=== PATIENT | female | born 1950 | race Caucasian/White ===

== ENCOUNTER → 2018-09-29 | Outpatient (CLI) | payer MEDICARE ==
--- NOTE | 2018-09-29 12:36 | ECHOS ---
STRESS ECHOCARDIOGRAM DOBUTAMINE STRESS ECHO: DATE OF SERVICE: 09/29/2018 INDICATIONS: Chest pain. MEDICATIONS: BASELINE HEART RATE: 79 BASELINE BLOOD PRESSURE: 145/86 MAXIMUM HEART RATE: 135 MAXIMUM BLOOD PRESSURE: 175/58 85% MPHR: 130 100% MPHR: 153 METS: MAXIMUM STAGE REACHED: TOTAL EXERCISE TIME: CLINICAL INFORMATION: Baseline EKG shows sinus rhythm, normal axis, normal intervals. Patient was given intravenous dobutamine over a period of 7-1/2 minutes as per protocol. Did not have chest pain or diagnostic ST-segment depression. The patient complained of jaw pain. Baseline echo shows normal left ventricular size, wall motion and systolic function. Post dobutamine infusion, there is normal hyperdynamic response of all segments of myocardium noted. CONCLUSIONS: 1. Negative stress test by EKG criteria. 2. Negative dobutamine echo. MMODL / IJN: [id number] /
== END | disposition home or self-care (01) ==
LOC: RADNMMAIN 09:41
PROVIDERS: ATTEND Family Medicine
DX: R00.2 Palpitations (principal); Z88.2 Allergy status to sulfonamides; Z88.5 Allergy status to narcotic agent
CPT/HCPCS: 93351

== ENCOUNTER → 2018-09-29 | Outpatient (CLI) | payer MEDICARE ==
[~2018-09-29] MED LIST: DOBUTamine DRIP for NUC MED 500 MG in DEXTROSE/WATER 1 250ML.BAG IV ONE
--- NOTE | 2018-09-30 10:09 | MM ---
Reason for exam: screening (asymptomatic). Last mammogram was performed 2 years and 10 months ago. History: Patient is postmenopausal. Benign US biopsy breast VAD LT of the left breast, November 17, 2015. Physical Findings: A clinical breast exam by your physician is recommended on an annual basis and results should be correlated with mammographic findings. MG 3D Screening Mammo W/Cad Bilateral CC and MLO view(s) were taken. Prior study comparison: November 17, 2015, left breast MG diagnostic mammo LT wo CAD. October 31, 2015, bilateral MG 3d screening mammo w/cad. The breast tissue is heterogeneously dense. This may lower the sensitivity of mammography. Previous mammotome biopsy in the left breast. There is chronic nodularity bilaterally. There is no dominant lesion. No significant changes when compared with prior studies. ASSESSMENT: Benign, BI-RAD 2 RECOMMENDATION: Routine screening mammogram of both breasts in 1 year.
== END | disposition home or self-care (01) ==
LOC: RADMAMWWP 09:07
PROVIDERS: ATTEND Family Medicine
DX: Z12.31 Encounter for screening mammogram for malignant neoplasm of breast (principal)
CPT/HCPCS: 77067; 77063; J1250

== ENCOUNTER → 2019-10-18 | Outpatient (CLI) | payer MEDICARE ==
--- NOTE | 2019-10-18 11:29 | MM ---
Reason for exam: screening (asymptomatic). Last mammogram was performed 1 year and 1 month ago. History: Patient is postmenopausal. Benign US biopsy breast VAD LT of the left breast, November 17, 2015. Physical Findings: A clinical breast exam by your physician is recommended on an annual basis and results should be correlated with mammographic findings. MG 3D Screening Mammo W/Cad Bilateral CC and MLO view(s) were taken. Prior study comparison: September 29, 2018, bilateral MG 3d screening mammo w/cad. November 17, 2015, left breast MG diagnostic mammo LT wo CAD. The breast tissue is heterogeneously dense. This may lower the sensitivity of mammography. There are numerous bilateral round oval circumscribed masses throughout. No significant interval growth compared to priors. Left biopsy marker ruth the largest mass. No suspicious abnormality. No significant changes when compared with prior studies. ASSESSMENT: Benign, BI-RAD 2 RECOMMENDATION: Routine screening mammogram of both breasts in 1 year.
== END | disposition home or self-care (01) ==
LOC: RADMAMWWP 09:39
PROVIDERS: ATTEND Obstetrics & Gynecology
DX: Z12.31 Encounter for screening mammogram for malignant neoplasm of breast (principal)
CPT/HCPCS: 77063; 77067

== ENCOUNTER 2020-04-18 10:20 | Emergency (ER) | payer MEDICARE ==
[2020-04-18 10:26] VITALS: TEMP 98.3
[2020-04-18] MEDS ORDERED: diphenhydrAMINE 50 MG/ML 1 ML VIAL IVP STA (10:38)
[2020-04-18] MEDS ORDERED: FAMOTIDINE 20 MG/2 ML VIAL IV STA (10:38)
[2020-04-18] MEDS ORDERED: methylPREDNISolone SOD SUCCI 125 MG/2 ML VIAL IV STA (10:38)
[2020-04-18] MEDS ORDERED: SODIUM CHLORIDE 0.9% 500 ML 500 ML IV STA (10:38)
--- NOTE | 2020-04-18 11:06 | ED ---
General Adult HPI - General Chief complaint: Allergic Reaction Stated complaint: Bee Sting Allergic reaction Time Seen by Provider: 04/18/20 10:33 Source: patient, RN notes reviewed, old records reviewed Mode of arrival: wheelchair Limitations: no limitations - History of Present Illness Initial comments: 69-year-old female patient presents to ED for evaluation of wasp sting to right ring finger. Patient reports this happened about 1 hour prior to evaluation hospital. Patient denying any rash or swelling of the face. Does have some localized swelling to the hand where she was stung. Does report a little bit of chest tightness. Denies any other acute complaints. Systemic: Pt denies fatigue, fever/chills, rash. Pt denies weakness, night sweats, weight loss. Neuro: Pt denies headache, visual disturbances, syncope or pre-syncope. HEENT: Pt denies ocular discharge or irritation, otalgia, rhinorrhea, pharyngitis or notable lymphadenopathy. Cardiopulmonary: Pt denies chest pain, heart palpitations, dyspnea on exertion. Abdominal/GI: Pt denies abdominal pain, n/v/d. : Pt denies dysuria, burning w/ urination, frequency/urgency. Denies new onset urinary or bowel incontinence. MSK: Pt denies myalgia, loss of strength or function in extremities. Neuro: Pt denies new onset weakness, paresthesias. - Related Data Home Medications Medication Instructions Recorded Confirmed Albuterol Inhaler (Mhu) [Ventolin 1 - 2 puff INHALATION Q4-6H PRN 09/21/19 09/21/19 Hfa Inhaler] Previous Rx's Medication Instructions Recorded Estrogens, Conjugated Cream 1 applicator VAGINAL DIRECTED 09/21/19 [Premarin Cream] #1 tube predniSONE 50 mg PO DAILY #5 tab 04/18/20 Allergies Allergy/AdvReac Type Severity Reaction Status Date / Time codeine Allergy Unknown Dyspnea, Verified 09/21/19 10:01 Couldnt see or hear. perfume Allergy Unknown ASTHMA Verified 09/21/19 10:01 SYMPTOMS Sulfa (Sulfonamide Allergy Swelling Unverified 09/21/19 10:01 Antibiotics) Review of Systems ROS Statement: Those systems with pertinent positive or pertinent negative responses have been documented in the HPI. ROS Other: All systems not noted in ROS Statement are negative. 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 Previous benign ovarian mass removed surgically. History of Any Multi-Drug Resistant Organisms: None Reported Past Surgical History: Breast Surgery, Section, Hysterectomy, Tonsillectomy Additional Past Surgical History / Comment(s): X2, FOOT SURGERY. Breast biopsy. SIERRA in 1994. Colonoscopy 2019(next after 5yr). Past Anesthesia/Blood Transfusion Reactions: Motion Sickness, Postoperative Nausea & Vomiting (PONV) Past Psychological History: No Psychological Hx Reported Past Alcohol Use History: Occasional Past Drug Use History: None Reported - Past Family History Father Family Medical History: Cancer Additional Family Medical History / Comment(s): Prostate cancer. Sister(s) Family Medical History: Cancer Additional Family Medical History / Comment(s): CERVICAL CA Mother Family Medical History: CVA/TIA General Exam - General Exam Comments Initial Comments: Constitutional: NAD, AOX3, Pt has pleasant affect. HEENT: NC/AT, trachea midline, neck supple, no lymphadenopathy. Posterior pharynx non erythematous, without exudates. External ears appear normal, without discharge. Mucous membranes moist. Eyes PERRLA, EOM intact. There is no scleral icterus. No pallor noted. Cardiopulmonary: RRR, no murmurs, rubs or gallops, no JVD noted. Lungs CTAB in anterior and posterior lopez. No peripheral edema. Abdominal exam: Abdomen soft and non-distended. Abdomen non-tender to palpation in all 4 quadrants. Bowel sounds active in LLQ. No hepatosplenomegaly. No ecchymosis Neuro: CN II-XII grossly intact. No nuchal rigidity. MSK: Mild swelling to right hand, sting noted to ring finger. No stinger is present. no rash or hives noted. No posterior calf tenderness bilaterally, homans sign negative bilaterally. Posterior tibialis and radial pulse +2 bilaterally. Sensation intact in upper and lower extremities. Full active ROM in upper and lower extremities, 5/5 stregnth. Limitations: no limitations Course Vital Signs 04/18/20 04/18/20 04/18/20 10:24 10:59 11:30 Temperature 98.3 F Pulse Rate 81 63 Respiratory 18 20 18 Rate Blood Pressure 156/68 167/83 O2 Sat by Pulse 97 100 Oximetry Medical Decision Making - Medical Decision Making 69-year-old female patient presents to ED for evaluation of bee sting. Patient will signs are stable, afebrile. Patient initially had a little bit of chest tightness. Physical exam does reveal some erythema and edema to the right hand and a standing noted to the third digit. There is no stinger present for removal. This was reported from a wasp. Patient was administered Pepcid Benadryl and solumedrol. EKG non ischemic. Feeling much improved. No longer feeling any any chest tightness. Erythema improved. Patient never had any angioedema or any hives. Patient discharged with burst steroid treatment and return precautions. Case discussed with Dr. Davis. Disposition Clinical Impression: Wasp sting Disposition: HOME SELF-CARE Condition: Serious Instructions (If sedation given, give patient instructions): General Allergic Reaction (ED) Additional Instructions: Follow up with PCP tomorrow. Take steroids as directed. Return to ED if condition worsens. Prescriptions: predniSONE 50 mg PO DAILY #5 tab Is patient prescribed a controlled substance at d/c from ED?: No Referrals: Primo Shaffer MD [Primary Care Provider] - 1-2 days
[2020-04-18 11:32] VITALS: RESP 18
[2020-04-18 12:50] VITALS: BP 145/88; PULSE 89
== END 2020-04-18 12:50 | disposition home or self-care (01) ==
LOC: EC 10:20
DX: T63.461A Toxic effect of venom of wasps, accidental (unintentional), initial encounter (principal); J45.909 Unspecified asthma, uncomplicated; Z88.2 Allergy status to sulfonamides; Z88.5 Allergy status to narcotic agent; Z91.048 Other nonmedicinal substance allergy status
CPT/HCPCS: 93005; 99284; 96374; 96375 ×2; 96361; J1200; J2930

== ENCOUNTER → 2020-11-08 | Outpatient (CLI) | payer MEDICARE ==
--- NOTE | 2020-11-07 13:44 | P.PN ---
Progress Note - Text Progress Note Date: 11/07/20 The patient is scheduled for her well woman exam on 11/08/2020 (tomorrow). Today she has called because she has noticed pain in the right breast. This first occurred 2 days ago when she woke up and felt like the right breast was "on fire" this gradually resolved later that day. This morning she again woke with a searing type pain in the right breast. This did gradually improve in now feels like a itchy hot sensation. She is wondering if she can have an ultrasound of the breast instead of her screening mammogram since she believes that mammogram itself may be painful. She was instructed to avoid pushing and touching the breast. She will keep her appointment tomorrow to see me and we can evaluate the breasts at that time. We will determine if diagnostic mammogram is warranted. She understands that I do not feel the breast ultrasound would be a good replacement for a mammogram. We have also discussed the option of postponing the mammogram for 1 week to see if the right breast soreness resolved.
[2020-11-08 09:25] VITALS: BP 120/77; PULSE 77; RESP 18; TEMP 97.9
--- NOTE | 2020-11-08 11:04 | P.HPOB ---
History of Present Illness H&P Date: 11/08/20 Chief Complaint: The patient is here for her routine gynecologic exam. This is a 70-year-old with an LMP of 1994. The patient states that she developed right breast pain 3 days ago. She states she woke up at that time with right breast pain which was searing and tender and it felt like the breast was "going to explode." It felt like as if her right arm was clamped down on the breast. The discomfort did eventually resolve, but then recurred yesterday morning. She noticed it when she bent down and the breasts were hanging down from the chest wall and again the right breast felt very sore and painful. Today she does not feel much pain when she is not thinking about it, but when she thinks about it or touches the breast and does feel tender. The tenderness seems to be on the inner aspect of the right breast. Yesterday she also noticed bilateral pruritus of the nipples which has resolved. She denies any trauma to the breasts. She denies nipple discharge or blood from the nipples. She denies any different exercise activity. She did eat yams around the time her symptoms started which was different for her. She is otherwise without complaints. She states she did not use the estrogen vaginal cream last year which was going to be used for right-sided vaginal dryness and discomfort with intercourse. She states she did not get the perception because of the cost. She states those symptoms have resolved since then. Review of Systems She is gained 3 pounds over the past year. Respiratory: Occasional slight wheezing which she believes is possibly related to her gastric reflux and asthma. Cardiac: She denies cardiac problems. GI: Occasional gastric reflux She denies maltreatment or problems with falling. : Occasional slight leakage with coughing and at times she has to get to the bathroom right away. 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 Previous benign ovarian mass removed surgically. History of Any Multi-Drug Resistant Organisms: None Reported Past Surgical History: Breast Surgery, Section, Hysterectomy, Tonsillectomy Additional Past Surgical History / Comment(s): X2, FOOT SURGERY. Breast biopsy. SIERRA in 1994. Colonoscopy 2019(next after 5yr). Past Anesthesia/Blood Transfusion Reactions: Motion Sickness, Postoperative Na usea & Vomiting (PONV) Past Psychological History: No Psychological Hx Reported Smoking Status: Never smoker Past Alcohol Use History: Occasional (0-2 per month) Past Drug Use History: None Reported Additional History: She has been since 1970 and retired in 2019. - Past Family History Father Family Medical History: Cancer Additional Family Medical History / Comment(s): Prostate cancer. Sister(s) Family Medical History: Cancer Additional Family Medical History / Comment(s): CERVICAL CA Mother Family Medical History: CVA/TIA Medications and Allergies Home Medications Medication Instructions Recorded Confirmed Type Albuterol Inhaler (Mhu) [Ventolin 1 - 2 puff INHALATION Q4-6H PRN 09/21/19 11/08/20 History Hfa Inhaler] Losartan [Cozaar] 50 mg PO DAILY 11/08/20 11/08/20 History Allergies Allergy/AdvReac Type Severity Reaction Status Date / Time codeine Allergy Unknown Dyspnea, Verified 11/08/20 09:19 Couldnt see or hear. perfume Allergy Unknown ASTHMA Verified 11/08/20 09:19 SYMPTOMS Sulfa (Sulfonamide Allergy Swelling Unverified 11/08/20 09:19 Antibiotics) Exam Vital Signs Temp Pulse Resp BP Pulse Ox 11/08/20 09:21 97.9 F 77 18 120/77 99 Intake and Output 11/07/20 11/08/20 11/08/20 22:59 06:59 14:59 Other: Weight 88.904 kg Height 5 feet 3 inches, weight 196 pounds, BMI 34.7. This is a well-developed well-nourished white female who is alert and oriented times 3 in no acute distress. HEENT: Within normal limits. NECK: Supple without mass or thyromegaly. CHEST AND LUNGS: Clear to auscultation. HEART: Regular rate and rhythm. BREASTS: Are without mass or discharge. There is mild to moderate right breast tenderness from the 2:00 to 3 o'clock position. There was also a brief right lateral breast tenderness to palpation which was only transient. The left breast is nontender without palpable mass or discharge. There is no unusual puckering or dimpling. AXILLARY EXAM: Negative for adenopathy. BACK: Negative for CVA tenderness. ABDOMEN: Soft, nontender, without palpable masses. PELVIC EXAM: External genitalia appears normal with mild to moderate atrophy. Vagina appears normal is mild to moderate atrophy. There is no evidence of prolapse. Bimanual examination is negative for mass or tenderness. RECTAL EXAM: Rectovaginal exam is negative for mass or tenderness and is negative for occult blood. EXTREMITIES: Nontender. IMPRESSION: 1. 70-year-old menopausal female status post SIERRA for benign reasons with recent acute right breast pain during the past 3 days with tenderness of the right breast. There are no palpable breast masses. 2. Improvement of dyspareunia without use of estrogen vaginal cream which was never started because of its cost. PLAN: 1. Pap smears have been discontinued. 2. Self breast awareness was discussed with the patient. 3. Diagnostic mammogram was recommended because of the recent acute pain and tenderness on exam today. She has been scheduled for a bilateral diagnostic mammogram on 11/09/2020. The order slip was given to the patient for this. 4. Osteoporosis prevention was discussed. I have stressed the importance of adequate calcium, vitamin D and regular exercise. Recommended amounts of calcium and vitamin D were also discussed. Bone density testing was recommended and this was also scheduled on 11/09/2020. The order slip was given to the patient for this. 5. She was advised to return in one year for her annual well woman exam and as needed.
== END ==
LOC: WWCWWP 09:09
PROVIDERS: ATTEND Obstetrics & Gynecology
DX: N64.4 Mastodynia (principal); N94.10 Unspecified dyspareunia; I10 Essential (primary) hypertension; J45.909 Unspecified asthma, uncomplicated; Z90.710 Acquired absence of both cervix and uterus

== ENCOUNTER → 2020-11-09 | Outpatient (CLI) | payer MEDICARE ==
--- NOTE | 2020-11-09 13:50 | MM ---
Reason for exam: clinical finding. Last mammogram was performed 1 year and 1 month ago. History: Patient is postmenopausal. Benign US biopsy breast VAD LT of the left breast, November 17, 2015. Physical Findings: Nurse did not find any significant physical abnormalities on exam. MG 3D Diag Mammo W/Cad SRINI Bilateral CC and MLO view(s) were taken. Prior study comparison: October 18, 2019, bilateral MG 3d screening mammo w/cad. September 29, 2018, bilateral MG 3d screening mammo w/cad. The breast tissue is heterogeneously dense. This may lower the sensitivity of mammography. There is chronic nodularity bilaterally. No significant new findings when compared with previous films. These results were verbally communicated with the patient and result sheet given to the patient on 11/09/20. ASSESSMENT: Benign, BI-RAD 2 RECOMMENDATION: Follow-up diagnostic mammogram of both breasts in 1 year.
--- NOTE | 2020-11-13 18:43 | BD ---
EXAMINATION TYPE: Axial Bone Density DATE OF EXAM: 11/09/2020 COMPARISON: NONE CLINICAL HISTORY: 70 YR OLD FEMALE....ICD-10 CODE: Z78.0 POST GIOVANNA Height: 62.2 Weight: 195 FRAX RISK QUESTIONS: Glucocorticoids (More than 3mos): PRN (Ex: prednisone, prednisolone, methylprednisolone, dexamethasone, and hydrocortisone). History of Fracture in Adulthood: YES Secondary Osteoporosis: YES 3. Menopause before 45: YES RISK FACTORS HISTORY OF: HX OF TAIL BONE, SCAPULA AND WRIST FXS AN ADULT History of Wrist Fracture: RT WRIST Postmenopausal woman: YES, AT 44 YRS OLD Hyperparathyroidism: NO Adrenal Insufficiency: NO MEDICATIONS: Prednisone or other steroids: ASTHMA INHALERS PRN Additional Medications: BP MEDS, REFLUX MEDS, STATIN FOR CHOLESTEROL 8 YRS AGO, Additional History: LT KNEE PAIN, HYPERTENSION, REFLUS, CHOLESTEROL EXAM MEASUREMENTS: Bone mineral densitometry was performed using the [employer] Interactive System. Bone mineral density as measured about the Lumbar spine is: ----- L1-L4(G/cm2): 1.682 T Score Values are as follows: ----- L1: 3.4 ----- L2: 4.1 ----- L3: 5.2 ----- L4: 4.1 ----- L1-L4: 4.2 Bone mineral density BASELINE STUDY Bone mineral density about the R hip (g/cm2): 1.076 Bone mineral density about the L hip (g/cm2): 1.092 T Score values are as follows: -----R Neck: -0.1 -----L Neck: -0.1 -----R Total: 0.5 -----L Total: 0.7 Bone mineral density BASELINE DEXA STUDY FRAX%s: THERE IS A 16.7% CHANCE FOR A MAJOR OSTEOPOROTIC FX AND A 1.0% FOR HIP.....PROBABILITY F OR FX IN 10 YRS TIME IMPRESSION: Normal (Values between +1 and -1 indicate normal bone mass). Consider repeating this study in 5 year s or sooner if there is some new clinical indication. NOTE: T-SCORE=SD OF THE YOUNG ADULT MEAN.
== END | disposition home or self-care (01) ==
LOC: RADMAMWWP 07:58
PROVIDERS: ATTEND Obstetrics & Gynecology
DX: N64.4 Mastodynia (principal); Z78.0 Asymptomatic menopausal state; M85.88 Other specified disorders of bone density and structure, other site
CPT/HCPCS: 77080; 77066; G0279; 77062

== ENCOUNTER → 2023-04-02 | Outpatient (CLI) | payer MEDICARE ==
--- NOTE | 2023-04-03 07:56 | MM ---
Reason for Exam: Screening (asymptomatic). Last mammogram was performed 2 year(s) and 5 month(s) ago. Patient History: Menarche at age 12. First Full-Term at age 21. Hysterectomy at age 44. Postmenopausal. Patient has history of breast feeding. 11/17/2015, Benign Core Biopsy on the left side. Risk Values: Isabel 5 year model risk: 1.9%. NCI Lifetime model risk: 4.8%. Prior Study Comparison: 10/31/2015 Bilateral Screening Mammogram, [facility]. 11/17/2015 Left Diagnostic Mammogram, [facility]. 09/29/2018 Bilateral Screening Mammogram, [facility]. 10/18/2019 Bilateral Screening Mammogram, [facility]. 11/09/2020 Bilateral Diagnostic Mammogram, [facility]. Tissue Density: The breast tissue is heterogeneously dense. This may lower the sensitivity of mammography. Findings: Analyzed By CAD. Left breast biopsy clip. Stable fibroglandular tissue appearance. There is no suspicious group of microcalcifications or new suspicious mass in either breast. Overall Assessment: Benign, BI-RAD 2 Management: Screening Mammogram of both breasts in [address] [facility] will attempt to contact patient to return for supplemental views and ultrasound if indicated. Patient should continue monthly self-breast exams. A clinical breast exam by your physician is recommended on an annual basis. This exam should not preclude additional follow-up of suspicious palpable abnormalities. Note on Isabel scores and lifetime risk: 1. A Isabel score greater than 3% is considered moderate risk. If this is the case, consider specialist referral to assess eligibility for a risk reducing agent. 2. If overall lifetime risk for the development of breast cancer is 20% or higher, the patient may qualify for future screening with alternating mammogram and breast MRI. Electronically signed and approved by: Clarke Mays DO
== END | disposition home or self-care (01) ==
LOC: RADMAMWWP 08:00
PROVIDERS: ATTEND Family Medicine
DX: Z12.31 Encounter for screening mammogram for malignant neoplasm of breast (principal); Z78.0 Asymptomatic menopausal state
CPT/HCPCS: 77063; 77067

== ENCOUNTER → 2024-04-12 | Outpatient (CLI) | payer MEDICARE ==
--- NOTE | 2024-04-25 12:20 | MM ---
Reason for Exam: Screening (asymptomatic). Last screening mammogram was performed 12 month(s) ago. Patient History: Menarche at age 12. First Full-Term at age 21. Hysterectomy at age 44. Postmenopausal. Patient has history of breast feeding. 11/17/2015, Benign Core Biopsy on the left side. Risk Values: Isabel 5 year model risk: 1.9%. NCI Lifetime model risk: 4.6%. Prior Study Comparison: 10/18/2019 Bilateral Screening Mammogram, [facility]. 11/09/2020 Bilateral Diagnostic Mammogram, [facility]. 04/02/2023 Bilateral MG 3D screening mammo w/cad, [facility]. Tissue Density: There are scattered areas of fibroglandular density. Findings: Analyzed By CAD. Left breast biopsy clip. Right breast: There is no suspicious group of microcalcifications or new suspicious mass. Left breast: There is no suspicious group of microcalcifications or new suspicious mass. Overall Assessment: Benign, BI-RAD 2 Management: Screening Mammogram of both breasts in [address] [facility] will attempt to contact patient to return for supplemental views and ultrasound if indicated. Patient should continue monthly self-breast exams. A clinical breast exam by your physician is recommended on an annual basis. This exam should not preclude additional follow-up of suspicious palpable abnormalities. Note on Isabel scores and lifetime risk: 1. A Isabel score greater than 3% is considered moderate risk. If this is the case, consider specialist referral to assess eligibility for a risk reducing agent. 2. If overall lifetime risk for the development of breast cancer is 20% or higher, the patient may qualify for future screening with alternating mammogram and breast MRI. Electronically signed and approved by: Clarke Mays DO
== END | disposition home or self-care (01) ==
LOC: RADMAMWWP 13:10
PROVIDERS: ATTEND Family Medicine
DX: Z12.31 Encounter for screening mammogram for malignant neoplasm of breast
CPT/HCPCS: 77063; 77067